=== PATIENT | female | born 1985 | race Caucasian/White ===

== ENCOUNTER 2022-07-12 00:01 | Day surgery (SDC) | payer OTHER ==
[2022-07-12 00:17] VITALS: BMI 32.9
[2022-07-12] MEDS ORDERED: hydrALAZINE 20 MG/ML VIAL SLOW IVP PRN (01:48)
== END 2022-07-12 01:51 | disposition home or self-care (01) ==
LOC: CSHLD/OP 00:01
PROVIDERS: ATTEND Student in an Organized Health Care Education/Training Program
DX: O36.8130 Decreased fetal movements, third trimester, not applicable or unspecified (principal); Z3A.39 39 weeks gestation of pregnancy; Z90.49 Acquired absence of other specified parts of digestive tract